=== PATIENT | male | born 1950 | race Caucasian/White ===

== ENCOUNTER 2017-03-02 18:53 | Emergency (ER) | payer MEDICARE ==
[2017-03-02] MEDS ORDERED: Ondansetron HCl/PF 4 MG/2 ML Vial ONE (19:21)
[2017-03-02] MEDS ORDERED: HYDROcodone/Acetaminophen 10/325 mg Tablet ONE (19:42)
[2017-03-02 19:53] LABS: Hemoglobin 12.8 g/dL (14.0-18.0); Mean Corpuscular HGB CONC 35.1 g/dL (32.0-36.0); Mean Corpuscular Hemoglobin 36.1 pg (27.0-31.0); Mean Platelet Volume 6.8 fL (7.4-10.4); Platelet Count 151 thou/uL (130-400); RBC Distribution Width 14.1 % (11.5-14.5); Red Blood Cell (RBC) Count 3.55 mill/uL (4.70-6.10); White Blood Cell (WBC) Count 9.4 thou/uL (4.8-10.8)
[2017-03-02 19:55] LABS: INR-International Normal Ratio 1.1; PTT 32.6 SEC (22.9-36.1); Prothrombin Time 14.2 SEC (12.0-14.7)
[2017-03-02 19:59] LABS: Anion Gap 15 mmol/L (10-20); BUN (Urea Nitrogen) 29 mg/dL (8.4-25.7); Calc. Creatinine Clearance 0 mL/min (70-130); Calcium 8.7 mg/dL (7.8-10.44); Carbon Dioxide 26 mmol/L (23-31); Chloride 102 mmol/L (98-107); Estimated GFR-MDRD 37; Glucose 100 mg/dL (80-115); Potassium 3.9 mmol/L (3.5-5.1); Sodium 139 mmol/L (136-145)
--- NOTE | 2017-03-02 20:00 | RAD ---
EXAM: CHEST ONE VIEW 03/02/17 COMPARISON: 07/24/16 HISTORY: Chest pain. Pain status post procedure. Patient had battery placed on pacemaker. FINDINGS: Portable upright chest redemonstrates the left sided transvenous defibrillator. Limited evaluation o f lead position due to poor penetration and portable technique. Heart size is normal. Pulmonary vess els and hilum are normal. Costophrenic angles are clear. No mass or consolidation. No pneumothorax o r osseous abnormalities. IMPRESSION: 1. No acute cardiopulmonary process. 2. Left sided transvenous pacemaker, limiting evaluation of lead position due to portable techn ique. POS: [facility]
[2017-03-02 20:03] LABS: #Basophils 0.1 thou/uL (0.0-0.2); #Eosinphils 0.6 thou/uL (0.0-0.7); #Lymphocytes 2.2 thou/uL (1.20-3.40); #Monocytes 0.7 thou/uL (0.11-0.59); #Neutrophils 5.8 thou/uL (1.40-6.50); %Basophils 0.7 % (0.0-1.0); %Eosinophils 6.6 % (0.0-10.0); %Lymphocytes 23.4 % (21.0-51.0); %Monocytes 7.3 % (0.0-10.0); MDiff Complete? YES; Macrocytosis SLIGHT = 6-15 cells (100X) (0-5/hpf); PLT Morphology Comment Appears Adequate
== END 2017-03-02 20:45 | disposition home or self-care (01) ==
LOC: BURERS 18:53
DX: T82.847A Pain due to cardiac prosthetic devices, implants and grafts, initial encounter (principal); I97.638 Postprocedural hematoma of a circulatory system organ or structure following other circulatory system procedure; I25.10 Atherosclerotic heart disease of native coronary artery without angina pectoris; I48.91 Unspecified atrial fibrillation; I11.0 Hypertensive heart disease with heart failure; I50.9 Heart failure, unspecified; F31.9 Bipolar disorder, unspecified; F41.9 Anxiety disorder, unspecified; Z87.891 Personal history of nicotine dependence
CPT/HCPCS: 71010; 80048; 85025; 85610; 85730; 93005; 96374; J2270; J2405

== ENCOUNTER 2018-05-22 02:14 | Emergency (ER) | payer MEDICARE ==
[2018-05-22] MEDS ORDERED: methylPREDNISolone Sod Succ/PF 125 MG/2 ML VIAL ONE (02:49)
[2018-05-22] MEDS ORDERED: Pantoprazole 40 MG VIAL ONE (02:50)
[2018-05-22 03:11] LABS: #Basophils 0.1 thou/uL (0.0-0.2); #Eosinphils 0.4 thou/uL (0.0-0.7); #Lymphocytes 1.5 thou/uL (1.20-3.40); #Monocytes 0.8 thou/uL (0.11-0.59); #Neutrophils 5.7 thou/uL (1.40-6.50); %Basophils 0.8 % (0.0-1.0); %Eosinophils 4.9 % (0.0-10.0); %Monocytes 9.5 % (0.0-10.0); %Neutrophils 66.8 % (42.0-75.0); Hemoglobin 10.4 g/dL (14.0-18.0); Mean Corpuscular Hemoglobin 29.1 pg (27.0-31.0); Mean Corpuscular Volume 88.2 fL (78.0-98.0); Platelet Count 197 thou/uL (130-400); RBC Distribution Width 13.9 % (11.5-14.5); Red Blood Cell (RBC) Count 3.56 mill/uL (4.70-6.10); White Blood Cell (WBC) Count 8.5 thou/uL (4.8-10.8)
[2018-05-22 03:18] LABS: Clarity Clear (Clear)
[2018-05-22 03:19] LABS: Glucose, Urine (Dipstick) Negative (Negative); Leukocyte Negative (Negative); Nitrite Negative (Negative); Protein, Urine (Dipstick) Trace mg/dL (Neg-Trace); Specific Gravity, Urine 1.015 (1.005-1.030); pH, Urine 7.5 (5.0-9.0)
[2018-05-22 03:20] LABS: Bilirubin Small (Negative); Blood, Urine Negative (Negative)
[2018-05-22 03:26] LABS: ALT (SGPT) 11 U/L (8-55); AST (SGOT) 13 U/L (5-34); Albumin 3.5 g/dL (3.4-4.8); Alkaline Phosphatase 65 U/L (40-150); Anion Gap 12 mmol/L (10-20); BUN (Urea Nitrogen) 17 mg/dL (8.4-25.7); Bilirubin, Total 0.4 mg/dL (0.2-1.2); CK (CPK) 219 U/L (30-200); Calc. Creatinine Clearance 0 mL/min (70-130); Calcium 8.8 mg/dL (7.8-10.44); Carbon Dioxide 33 mmol/L (23-31); Chloride 97 mmol/L (98-107); Estimated GFR-MDRD 63; Globulin 2.4 g/dL (2.4-3.5); Glucose 97 mg/dL (80-115); Lipase 5 U/L (8-78); Protein, Total 5.9 g/dL (5.8-8.1); Sodium 138 mmol/L (136-145)
[2018-05-22 03:27] LABS: CKMB 2.8 ng/mL (0-6.6); Troponin I 0.028 ng/mL (< 0.028)
[2018-05-22] MEDS ORDERED: Furosemide 40 MG/4 ML VIAL ONE (04:40)
[2018-05-22] MEDS ORDERED: Ondansetron PF 4 MG/2 ML Vial ONE (04:42)
[2018-05-22] MEDS ORDERED: traMADol HCl 50 MG TAB ONE (05:02)
--- NOTE | 2018-05-22 07:28 | RAD ---
PORTABLE CHEST: Date: 05/22/18 An AP portable film at 0245 hours is compared with an 03/04/18 study. FINDINGS: The heart is borderline in size, but unchanged. There is no congestive change, pleural effusion, or p ulmonary edema. No lobar consolidation seen. The lungs are clear. Extra soft tissue density around th e trachea is felt to be tortuous great vessels and is no different than before. IMPRESSION: No acute thoracic finding. POS: HOME
== END 2018-05-22 06:06 | disposition home or self-care (01) ==
LOC: BURERS 02:14
DX: J44.1 Chronic obstructive pulmonary disease with (acute) exacerbation (principal); I50.9 Heart failure, unspecified; R10.10 Upper abdominal pain, unspecified; I11.0 Hypertensive heart disease with heart failure; I25.10 Atherosclerotic heart disease of native coronary artery without angina pectoris; I48.91 Unspecified atrial fibrillation; M19.90 Unspecified osteoarthritis, unspecified site; F41.9 Anxiety disorder, unspecified; F31.9 Bipolar disorder, unspecified; F25.9 Schizoaffective disorder, unspecified; F17.210 Nicotine dependence, cigarettes, uncomplicated; Z79.891 Long term (current) use of opiate analgesic; Z79.899 Other long term (current) drug therapy
CPT/HCPCS: 71045; 80053; 81003; 82553; 83690; 83880; 84484; 85025; 93005; 94640; 94760; 96374; 96375; C9113; J1940; J2405; J2930; J7620